=== PATIENT | male | born 1950 | race Two or more races ===

== ENCOUNTER 2020-03-18 09:37 | Emergency (ER) | payer OTHER ==
[~2020-03-18] VITALS: Ht 170.2 cm; Wt 72.6 kg
[2020-03-18 09:55] VITALS: BP 118/82
--- NOTE | 2020-03-18 10:08 | Emergency Room Report ---
History of Present Illness General Chief Complaint: Generalized Weakness Source: Patient, EMS Present Illness HPI Disclaimer: Please note that this report is being documented using DRAGON technology. This can lead to erroneous entry secondary to incorrect interpretation by the dictating instrument. HPI: 70-year-old male history of diabetes presents for evaluation of syncopal episode. The patient states he has been feeling weak after being diagnosed with COVID-19 yesterday. States he was eating breakfast and then was being shaken aw lindsay by his children. He has no recollection of these events. No seizure-like activity was reported. Did not bite his tongue or urinate himself. Has no history of seizures. There was no head injury. Occurred in a seated position. He denies any chest pain, shortness of breath. He reports generalized weakness and muscle aches. Denies fevers, chills, vomiting or diarrhea. 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 EOMI. Cardiovascular: RRR. S1 and S2 normal. No murmur appreciated Resp: Normal work of breathing. No cough, wheezing or crackles appreciated Abdomen: Abdomen is soft, nondistended. Nontender Skin: Intact. No abrasions, laceration or rash over the exposed skin MSK: Normal tone and bulk. Moving all extremities. No obvious deformity. Neuro: Awake and alert. Mentating appropriately. Procedures Critical Care Time Critical Care Time Total critical care time: Approximately 45 minutes Due to a high probability of clinically significant, life threatening deterioration, the patient required the highest level of preparedness to int ervene emergently and I personally spent this critical care time directly and personally managing the patient. This critical care time included obtaining a history, examining the patient, pulse oximetry, ordering and reviewing studies, ordering treatments, evaluating response to treatment and updating management plan as needed, frequent reassessment and discussion with other providers as well as arranging for ultimate disposition. This critical to care time was performed to assess and manage the high probability of life-threatening deterioration that could result in multiorgan failure. This critical care time is separate from the separately billable procedures and treating other patients. Medical Decision Making Diagnostic Impression: Primary Impression: 2019 novel coronavirus disease (COVID-19) Additional Impressions: Elevated d-dimer Syncope Pneumonia Left against medical advice ER Course 70-year-old male recent testing positive for COVID-19 presents after apparent syncopal episode at home. Patient states he has no recollection of the events but remembers being shaken awake by his children. Unable to obtain collateral information. He is otherwise is complaining of generalized weakness. Cultures, fluids, broad labs ordered. 1040: Patient son is now arrived. He states that he saw his father had episode of shaking chills and then a brief loss of consciousness today. He was worried he was apneic during this time but awoke immediately awake. States he has been shivering. He is receiving Zithromax after his diagnosis of COVID-19. Also continuing amoxicillin for the right otitis media. Chest x-ray concerning for possible early infiltrate in the right lower lobe. Labs thus far show normal white count. Continuing azithromycin. D-dimer returned elevated. Patient treated with Lovenox. Will admit for syncope, COVID-19 infection and possible pneumonia. Admitted to panel physician, Dr. Foote. 1400: Alerted by family that the patient's would like to leave to go to another hospital. His PMD has admitting privileges at [facility]. Family would like to take him there. I explained the risks that the patient has been given Lovenox for an elevated D-dimer and could cause increased bleeding should there be an accident or trauma. They understand the risk of sudden cardiac regarding his syncope as this is still an identified. As well they identify the risk of spreading COVID-19 to themselves as her father is positive. Patient would like to go to the other hospital where his PMD can take care of them directly. Signed AMA paperwork and was discharged. Laboratory Tests Test 03/18/20 09:46 03/18/20 10:45 White Blood Count 6.4 K/UL (4.8-10.8) Red Blood Count 5.09 M/UL (4.70-6.10) Hemoglobin 15.0 G/DL (14.2-18.0) Hematocrit 43.1 % (42.0-52.0) Mean Corpuscular Volume 85 FL (80-99) Mean Corpuscular Hemoglobin 29.4 PG (27.0-31.0) Mean Corpuscular Hemoglobin Concent 34.8 G/DL (32.0-36.0) Red Cell Distribution Width 11.8 % (11.6-14.8) Platelet Count 196 K/UL (150-450) Mean Platelet Volume 7.7 FL (6.5-10.1) Neutrophils (%) (Auto) 62.4 % (45.0-75.0) Lymphocytes (%) (Auto) 24.1 % (20.0-45.0) Monocytes (%) (Auto) 11.9 % (1.0-10.0) H Eosinophils (%) (Auto) 0.9 % (0.0-3.0) Basophils (%) (Auto) 0.7 % (0.0-2.0) Prothrombin Time 11.9 SEC (9.30-11.50) H Prothrombin Time INR 1.1 (0.9-1.1) Activated Partial Thromboplast Time 26 SEC (23-33) D-Dimer 0.61 mg/L FEU (0.00-0.49) H Sodium Level 139 MMOL/L (136-145) Potassium Level 3.9 MMOL/L (3.5-5.1) Chloride Level 103 MMOL/L (98-107) Carbon Dioxide Level 28 MMOL/L (21-32) Anion Gap 8 mmol/L (5-15) Blood Urea Nitrogen 14 mg/dL (7-18) Creatinine 1.1 MG/DL (0.55-1.30) Estimated Glomerular Filtration Rate > 60 mL/min (>60) Glucose Level 172 MG/DL (74-106) H Lactic Acid Level 1.10 mmol/L (0.4-2.0) Calcium Level 8.7 MG/DL (8.5-10.1) Magnesium Level 1.9 MG/DL (1.8-2.4) Ferritin 127 NG/ML (8-388) Total Bilirubin 0.5 MG/DL (0.2-1.0) Aspartate Amino Transferase (AST) 34 U/L (15-37) Alanine Aminotransferase (ALT) 34 U/L (12-78) Alkaline Phosphatase 84 U/L (46-116) Lactate Dehydrogenase 227 U/L (81-234) Total Creatine Kinase 109 U/L (26-308) Creatine Kinase MB < 0.5 NG/ML (0.0-3.6) Creatine Kinase MB Relative Index 0.4 Troponin I 0.000 ng/mL (0.000-0.056) C-Reactive Protein, Quantitative 4.5 mg/dL (0.00-0.90) H Pro-B-Type Natriuretic Peptide 47 pg/mL (0-125) Total Protein 6.7 G/DL (6.4-8.2) Albumin 3.5 G/DL (3.4-5.0) Globulin 3.2 g/dL Albumin/Globulin Ratio 1.1 (1.0-2.7) Lipase 189 U/L (73-393) Urine Color Yellow Urine Appearance Clear Urine pH 5 (4.5-8.0) Urine Specific [place] 1.020 (1.005-1.035) Urine Protein 3+ (NEGATIVE) H Urine Glucose (UA) Negative (NEGATIVE) Urine Ketones 3+ (NEGATIVE) H Urine Blood Negative (NEGATIVE) Urine Nitrite Negative (NEGATIVE) Urine Bilirubin Negative (NEGATIVE) Urine Urobilinogen Normal MG/DL (0.0-1.0) Urine Leukocyte Esterase Negative (NEGATIVE) Urine RBC 0 /HPF (0 - 0) Urine WBC 0 /HPF (0 - 0) Urine Squamous Epithelial Cells None /LPF (NONE/OCC) Urine Bacteria None /HPF (NONE) Urine Mucus Occasional /LPF Microbiology Date/Time Source Procedure Growth Status 03/18/20 10:00 Nasopharynx SARS-CoV-2 RdRp Gene Assay - Final Complete EKG Diagnostic Results Troponin ordered: Yes When was troponin ordered?: Mar 18, 2020 EKG Time: 09:43 Rate: normal Rhythm: NSR ST Segments: no acute changes Other Impression Sinus rhythm, normal axis, normal intervals, no ST segment changes Rhythm Strip Diag. Results Rhythm Strip Time: 09:43 EP Interpretation: yes Rate: 60s Rhythm: NSR, no PVC's, no ectopy Chest X-Ray Diagnostic Results Chest X-Ray Diagnostic Results : Chest X-Ray Ordered: Yes # of Views/Limited/Complete: 1 View Indication: Shortness of Breath EP Interpretation: Yes Interpretation: other - Right lower lobe consolidation versus atelectasis Impression: Other - Early consolidation versus atelectasis right lower lobe Electronically Signed by: Electronically signed by Dr. Gian Kerr Last Vital Signs Date Time Temp Pulse Resp B/P (MAP) Pulse Ox O2 Delivery O2 Flow Rate FiO2 03/18/20 09:38 98.4 61 18 113/83 (93) 97 Room Air Disposition: AGAINST MEDICAL ADVICE Condition: Stable Gian Kerr MD Mar 18, 2020 10:08
[2020-03-18] MEDS ORDERED: Azithromycin 500 MG in NS 275 ML IV ONE (10:15)
[2020-03-18 10:35] LABS: BASOPHILS % (AUTO) 0.7 % (0.0-2.0); EOSINOPHILS % (AUTO) 0.9 % (0.0-3.0); HEMATOCRIT 43.1 % (42.0-52.0); LYMPHOCYTES % (AUTO) 24.1 % (20.0-45.0); MEAN CORPUSCULAR VOLUME 85 FL (80-99); MONOCYTES % (AUTO) 11.9 % (1.0-10.0); NEUTROPHILS % (AUTO) 62.4 % (45.0-75.0); PLATELET COUNT 196 K/UL (150-450); RED BLOOD COUNT 5.09 M/UL (4.70-6.10); RED CELL DISTRIBUTION WIDTH 11.8 % (11.6-14.8); WHITE BLOOD COUNT 6.4 K/UL (4.8-10.8)
[2020-03-18 10:47] LABS: ANION GAP 8 mmol/L (5-15); BLOOD UREA NITROGEN 14 mg/dL (7-18); CALCIUM 8.7 MG/DL (8.5-10.1); CARBON DIOXIDE 28 MMOL/L (21-32); CHLORIDE 103 MMOL/L (98-107); CREATININE 1.1 MG/DL (0.55-1.30); INR 1.1 (0.9-1.1); POTASSIUM 3.9 MMOL/L (3.5-5.1); SODIUM 139 MMOL/L (136-145)
[2020-03-18] MEDS ORDERED: LOSARTAN POTASS50 MG ORAL (10:52)
[2020-03-18] MEDS ORDERED: METFORMIN HCL500 M1 ORAL (10:52)
[2020-03-18] MEDS ORDERED: AMOXICILLI250 MG/5 M ORAL (10:52)
[2020-03-18] MEDS ORDERED: Sodium Chloride 2,200 ML IVLG ONE (11:00)
[2020-03-18 11:09] LABS: ALANINE AMINOTRANSFERASE 34 U/L (12-78); ALBUMIN 3.5 G/DL (3.4-5.0); ALBUMIN/GLOBULIN RATIO 1.1 (1.0-2.7); ALKALINE PHOSPHATASE 84 U/L (46-116); ASPARTATE AMINO TRANSFERASE 34 U/L (15-37); BILIRUBIN,TOTAL 0.5 MG/DL (0.2-1.0); CKMB < 0.5 NG/ML (0.0-3.6); CREATINE KINASE 109 U/L (26-308); FERRITIN 127 NG/ML (8-388); LACTATE DEHYDROGENASE 227 U/L (81-234)
[2020-03-18 11:19] LABS: APPEARANCE,URINE CLEAR; BILIRUBIN, URINE NEGATIVE (NEGATIVE); GLUCOSE, URINE (UA) NEGATIVE (NEGATIVE); KETONES,URINE 3+ (NEGATIVE); LEUKOCYTE ESTERASE ,URINE NEGATIVE (NEGATIVE); NITRITE,URINE NEGATIVE (NEGATIVE); PH,URINE 5 (4.5-8.0); PROTEIN,URINE 3+ (NEGATIVE); UROBILINOGEN,URINE NORMAL MG/DL (0.0-1.0)
[2020-03-18 11:28] LABS: COLOR,URINE YELLOW
[2020-03-18] MEDS ORDERED: Enoxaparin 40mg Inj SUBQ SCH (12:00)
[2020-03-18 12:25] VITALS: BP 130/76
[2020-03-18] MEDS ORDERED: Albuterol/Ipratropium 3ml neb HHN PRN (12:45)
[2020-03-18] MEDS ORDERED: cefTRIAXone 1 GM in D5W 55 ML IVPB SCH (12:45)
[2020-03-18] MEDS ORDERED: Azithromycin 250 MG in D5W 275 ML IV SCH (12:45)
[2020-03-18] MEDS ORDERED: Miralax 17gm pkt ORAL PRN (14:30)
[2020-03-18] MEDS ORDERED: Promethazine/Codeine 5ml UD ORAL PRN (14:30)
--- NOTE | 2020-03-18 14:52 | Diagnostic Imaging Report ---
Indication: Reason For Exam: SOB Technique: Single AP view of the chest. Comparison: None. Findings: Heart is not enlarged when accounting for projection and technique. There are patchy bilateral midlung and right basilar airspace opacities. No pneumothorax. No pleural effusion. No acute osseous abnormality. IMPRESSION: Patchy midlung and right basilar airspace opacities which could represent atelectasis versus pneumonia.
[2020-03-18] MEDS ORDERED: NovoLOG Insulin Flexpen SUBQ SCH (16:30)
[2020-03-18] MEDS ORDERED: Heparin 5000 units/ml inj SUBQ SCH (21:00)
== END 2020-03-18 14:10 | disposition left against medical advice (07) ==
LOC: EDBD 09:37 → EMR 10:00 → EDBEDREQ 11:08 → EMR 14:10
DX: U07.1 COVID-19 (principal); R55 Syncope and collapse; J18.9 Pneumonia, unspecified organism; R79.89 Other specified abnormal findings of blood chemistry; E11.9 Type 2 diabetes mellitus without complications; Z53.29 Procedure and treatment not carried out because of patient's decision for other reasons
CPT/HCPCS: 36415; 71045; 80053; 81003; 82550; 82553; 82728; 83605; 83615; 83690; 83735; 83880; 84484; 85025; 85379; 85610; 85730; 86140; 87040; 93005; 96365; 99291; J0456; J1650; J7050; U0002